=== PATIENT | female | born 1945 ===

== ENCOUNTER 2018-03-25 17:57 | Emergency (ER) | payer MEDICARE ==
[~2018-03-25] VITALS: Ht 160 cm; Wt 61.2 kg
[2018-03-25] MEDS ORDERED: ATOR10TA PO (18:08)
[2018-03-25] MEDS ORDERED: METO25TA3 PO (18:08)
[2018-03-25] MEDS ORDERED: OXYCODONE/APAP 5-325 MG TABLET ONE (18:34)
[2018-03-25] MEDS ORDERED: ONDANSETRON ODT 4 MG TAB.RAPDIS ONE (18:34)
--- NOTE | 2018-03-25 18:36 | NUR ---
PATIENT WAS SEEN BY MD FOR SWOLLEN AND RED EYE AND HEAD PAIN. MEDICATION GIVEN ORDERED. PATIENT IS AWAKE, ALERT, ORIENTED X4.
[2018-03-25] MEDS ORDERED: ONDANSETRON ODT 4 MG TAB.RAPDIS SL ONE (18:45)
[2018-03-25] MEDS ORDERED: OXYCODONE/APAP 5-325 MG TABLET PO ONE (18:45)
== END 2018-03-25 18:51 | disposition home or self-care (01) ==
LOC: ER 18:11
DX: H10.9 Unspecified conjunctivitis (principal); I10 Essential (primary) hypertension; E78.00 Pure hypercholesterolemia, unspecified
CPT/HCPCS: A4663; Q0162